=== PATIENT | male | born 1995 | race Caucasian/White ===

== ENCOUNTER 2024-02-04 18:01 | Emergency (ER) | payer MEDICAID, OTHER ==
[~2024-02-04] VITALS: Ht 175.3 cm; Wt 90.9 kg
[2024-02-04 18:10] VITALS: TEMP 98.6
[2024-02-04 19:30] VITALS: BP 127/68; PULSE 95; RESP 22
== END 2024-02-05 01:22 | disposition home or self-care (01) ==
LOC: EMS 18:01
DX: R00.2 Palpitations (principal); T43.615A Adverse effect of caffeine, initial encounter; F41.9 Anxiety disorder, unspecified
CPT/HCPCS: 93005; 99284; Z7502